=== PATIENT | female | born 1990 | race Caucasian/White ===

== ENCOUNTER 2024-02-22 10:00 | Day surgery (SDC) | payer OTHER, SELFPAY ==
--- NOTE | 2024-02-22 | PATH_ITS ---
[facility] Accession Number: [id number] No. of containers..01 Tissue . 01 Material submitted: . back - BACK MASS . 01 Diagnosis: BACK, BIOPSY: Angiolipoma. V 02/24/2024 1342 Local . 01 Comment: The histologic material was reviewed with Dr. Meir Leal, who concurs. . 01 Electronically signed: . Aliya Jane MD, Dermatopathologist NPI- [id number] . 01 Gross description: . Received in formalin with two patient identifiers and back mass, is a yellow and brown, lobulated, soft tissue fragment, 3.3 x 2.4 x 2.2 cm, inked blue. Sectioning reveals a yellow and brown smooth cut surface. [employer] sections submitted in A1-A2. ([id number]) /MRV 02/23/2024 1436 Local . 01 Pathologist provided ICD-10: D17.9 . 01 CPT . 056142 Specimen Comment: A courtesy copy of this report has been sent to [phone] Performed at: [address] [facility] [address], [place], [place] [id number] MD Ignacio Mcallister MD Phone: [phone]
[2024-02-22 10:20] VITALS: BMI 27.0
[2024-02-22 10:36] VITALS: BP 108/72; PULSE 81; RESP 18; TEMP 37.1; O2SAT 99
--- NOTE | 2024-02-22 10:39 | PM.PREOP ---
Pre-operative Note COVID-19 COVID-19 status: Not tested Interval Note History & Physical reviewed/Exam performed by Physician: Yes Changes to H&P: No ASA Class (for procedural sedation): I
[2024-02-22] MEDS: LACTATED RINGERS 1,000 ML 42 ML IV (10:41)
[2024-02-22] MEDS: ACETAMINOPHEN 325 MG TABLET 975 MG PO (10:41)
--- NOTE | 2024-02-22 11:27 | SUR.OPER ---
Lateral on a warren bag, head on pillow, gel axillary roll in place, bottom leg bent with gel pad under knee to foot, upper leg straight and supported with pillows. Upper arm supported by pillows and secured over bottom arm to padded arm board. Safety belt at hip, tape over blanket lower legs.
[2024-02-22] MEDS: BUPIVACAINE 0.5% (PF) 30 ML, EPINEPHrine 0.15 MG INJ (11:30)
--- NOTE | 2024-02-22 11:39 | P.OP_ITS ---
Operative Date/Time/Diagnoses Date of procedure: 02/22/24 Time of procedure: 11:41 Pre-op diagnosis: Back mass Post-op diagnosis: same Procedure & Clinicians Procedure: Excisional biopsy of back mass Same procedure as scheduled: Yes Surgeon: King Nascimento Financial Advisor Trainee: Harmeet Leyva Anesthesia Type: General Operative Notes Procedure in detail: The patient is a 33-year-old woman with left upper back mass. She was consented for excisional biopsy in the operating room. The patient was brought to the operating room and general anesthesia was induced. She was positioned in the modified lateral position with the left side up. The back was prepped and draped in the usual fashion and a time-out was performed. We made a 6 cm vertical incision over the mass. We dissected down to the mass which turned out to be a lipoma. The lipoma was resected from the surrounding tissue using cautery and blunt dissection. The mass measured approximately 3 cm in diameter and was lobulated. We injected additional local into the fascia and surrounding dermis. We closed the wound in layers using multiple interrupted 3-0 Vicryl dermal sutures and a running 4-0 Monocryl subcuticular stitch. The wound was covered with Steri-Strips and sterile gauze. EBL: 10 mL Specimen: Back mass Harmeet PENN provided assistance with exposure, retraction and closure of incisions. Post-operative Condition: stable Disposition: PACU
[2024-02-22 11:59] VITALS: BP 107/62; PULSE 79; RESP 21; TEMP 36.6; O2SAT 99
[2024-02-22 12:03] VITALS: BP 108/62; PULSE 78; RESP 14; TEMP 36.5; O2SAT 99
[2024-02-22 12:10] VITALS: BP 113/68; PULSE 692; RESP 21; TEMP 36.5; O2SAT 100
[2024-02-22 12:15] VITALS: BP 104/64; PULSE 69; RESP 18; TEMP 36.5; O2SAT 98
== END 2024-02-22 12:24 | disposition home or self-care (01) ==
PROVIDERS: Referring Provider Surgery; Visit Provider Surgery
PROC: (CPT 21930; principal; 2024-02-22 11:15)
DX: D17.1 Benign lipomatous neoplasm of skin and subcutaneous tissue of trunk (principal)
CPT/HCPCS: 21930; J0171; J0330; J1100; J2250; J2405; J2704; J3010